=== PATIENT | female | born 2000 | race African-American/Black ===

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

== ENCOUNTER 2021-01-10 18:26 | Emergency (ER) | payer BC ==
[2021-01-10 18:35] VITALS: TEMP 98.4
[2021-01-10] MEDS ORDERED: SODIUM CHLORIDE 0.9% 1,000 ML IV STA (18:45)
--- NOTE | 2021-01-10 18:49 | ED ---
General Adult HPI - General Chief complaint: Syncope Stated complaint: Passout Time Seen by Provider: 01/10/21 18:29 Source: patient, EMS, RN notes reviewed Mode of arrival: EMS Limitations: no limitations - History of Present Illness Initial comments: Patient is a pleasant 20-year-old female presenting to the emergency department following syncopal episode. Patient does have history of similar symptoms previously. Patient believes she is around 13 weeks . No vaginal pain or pelvic pain. No vaginal discharge or bleeding. Patient has had some dyspnea persistent since beginning of , no recent change. Patient felt lightheaded and fell down today. Patient believes she passed out prior to striking the ground. Patient does have headache that is improving. No laceration. No visual change. No chest pain. - Related Data Home Medications Medication Instructions Recorded Confirmed Multivitamins, Thera [Multivitamin 1 tab PO DAILY 10/18/17 10/18/17 (formulary)] Previous Rx's Medication Instructions Recorded Cefixime [Suprax] 400 mg PO DAILY #7 cap 10/18/17 Allergies Allergy/AdvReac Type Severity Reaction Status Date / Time No Known Allergies Allergy Verified 01/10/21 18:29 Review of Systems ROS Statement: Those systems with pertinent positive or pertinent negative responses have been documented in the HPI. ROS Other: All systems not noted in ROS Statement are negative. Constitutional: Denies: fever Eyes: Denies: eye pain ENT: Denies: ear pain Respiratory: Denies: cough Cardiovascular: Denies: chest pain Endocrine: Denies: fatigue Gastrointestinal: Denies: abdominal pain Genitourinary: Reports: as per HPI. Denies: dysuria Musculoskeletal: Denies: back pain Skin: Denies: rash Neurological: Reports: as per HPI, headache. Denies: weakness, confusion Past Medical History Past Medical History: No Reported History History of Any Multi-Drug Resistant Organisms: None Reported Past Surgical History: Tonsillectomy Past Psychological History: Anxiety, Depression Past Alcohol Use History: None Reported Past Drug Use History: None Reported General Exam Limitations: no limitations General appearance: alert, in no apparent distress Head exam: Present: atraumatic, normocephalic, other (Mild tenderness posterior scalp) Eye exam: Present: normal appearance, PERRL, EOMI. Absent: nystagmus ENT exam: Present: normal oropharynx Neck exam: Present: normal inspection. Absent: tenderness Respiratory exam: Present: normal lung sounds bilaterally Cardiovascular Exam: Present: regular rate, normal rhythm, normal heart sounds Expanded Peripheral pulses: 2+: Radial (R), Radial (L), Posterior Tibialis (R), Posterior Tibialis (L) GI/Abdominal exam: Present: soft. Absent: distended, tenderness, guarding Extremities exam: Present: normal inspection. Absent: pedal edema, calf tenderness Neurological exam: Present: alert, oriented X3, CN II-XII intact. Absent: motor sensory deficit Expanded Motor strength exam: RUE: 5, LUE: 5, RLE: 5, LLE: 5 Eye Response: (4) open spontaneously Motor Response: (6) obeys commands Verbal Response: (5) oriented Psychiatric exam: Present: normal affect, normal mood Skin exam: Present: normal color Course Vital Signs 01/10/21 01/10/21 18:29 19:44 Temperature 98.4 F Pulse Rate 104 H 95 Respiratory 16 16 Rate Blood Pressure 110/70 104/70 O2 Sat by Pulse 99 98 Oximetry EKG Findings - EKG Comments: EKG Findings:: Normal sinus rhythm with a rate of 100. CA 150. QRS 84. QT 338. QTC 436. Right axis. Normal QRS. No acute ST change. Medical Decision Making - Medical Decision Making Patient reevaluated and resting sitting upright in bed, symptom-free. Patient updated on results. Patient states she feels better and is comfortable going home. Patient advised close follow-up with primary care physician and MANAGEMENT ASSOCIATE. - Lab Data Result diagrams: 01/10/21 19:04 01/10/21 19:04 Lab Results 01/10/21 01/10/21 01/10/21 Range/Units 18:36 19:01 19:04 WBC 5.8 (4.0-11.0) k/uL RBC 4.16 (3.80-5.40) m/uL Hgb 10.7 L (11.4-16.0) gm/dL Hct 32.6 L (34.0-46.0) % MCV 78.3 L (80.0-100.0) fL MCH 25.7 (25.0-35.0) pg MCHC 32.9 (31.0-37.0) g/dL RDW 16.0 H (11.5-15.5) % Plt Count 288 (150-450) k/uL MPV 7.6 Neutrophils % 76 % Lymphocytes % 16 % Monocytes % 5 % Eosinophils % 2 % Basophils % 0 % Neutrophils # 4.4 (1.3-7.7) k/uL Lymphocytes # 1.0 (1.0-4.8) k/uL Monocytes # 0.3 (0-1.0) k/uL Eosinophils # 0.1 (0-0.7) k/uL Basophils # 0.0 (0-0.2) k/uL Hypochromasia Slight Microcytosis Slight PT (9.0-12.0) sec INR (<1.2) APTT (22.0-30.0) sec Sodium (137-145) mmol/L Potassium (3.5-5.1) mmol/L Chloride (98-107) mmol/L Carbon Dioxide (22-30) mmol/L Anion Gap mmol/L BUN (7-17) mg/dL Creatinine (0.52-1.04) mg/dL Est GFR (CKD-EPI)AfAm (>60 ml/min/1.73 sqM) Est GFR (CKD-EPI)NonAf (>60 ml/min/1.73 sqM) Glucose (74-99) mg/dL POC Glucose (mg/dL) 122 H (75-99) mg/dL POC Glu Director Of Archives Carl Brooke Calcium (8.4-10.2) mg/dL Magnesium (1.6-2.3) mg/dL Total Bilirubin (0.2-1.3) mg/dL AST (14-36) U/L ALT (4-34) U/L Alkaline Phosphatase (38-126) U/L Troponin I (0.000-0.034) ng/mL Total Protein (6.3-8.2) g/dL Albumin (3.5-5.0) g/dL HCG, Quant mIU/mL Urine Color Yellow Urine Appearance Cloudy H (Clear) Urine pH 6.0 (5.0-8.0) Ur Specific [place] 1.031 (1.001-1.035) Urine Protein 1+ H (Negative) Urine Glucose (UA) Negative (Negative) Urine Ketones 3+ H (Negative) Urine Blood Negative (Negative) Urine Nitrite Positive H (Negative) Urine Bilirubin Negative (Negative) Urine Urobilinogen 2.0 (<2.0) mg/dL Ur Leukocyte Esterase Trace H (Negative) Urine RBC <1 (0-5) /hpf Urine WBC 4 (0-5) /hpf Ur Squamous Epith Cells 9 H (0-4) /hpf Urine Bacteria Occasional H (None) /hpf Urine Mucus Moderate H (None) /hpf 01/10/21 01/10/21 01/10/21 Range/Units 19:04 19:04 19:04 WBC (4.0-11.0) k/uL RBC (3.80-5.40) m/uL Hgb (11.4-16.0) gm/dL Hct (34.0-46.0) % MCV (80.0-100.0) fL MCH (25.0-35.0) pg MCHC (31.0-37.0) g/dL RDW (11.5-15.5) % Plt Count (150-450) k/uL MPV Neutrophils % % Lymphocytes % % Monocytes % % Eosinophils % % Basophils % % Neutrophils # (1.3-7.7) k/uL Lymphocytes # (1.0-4.8) k/uL Monocytes # (0-1.0) k/uL Eosinophils # (0-0.7) k/uL Basophils # (0-0.2) k/uL Hypochromasia Microcytosis PT 9.5 (9.0-12.0) sec INR 0.9 (<1.2) APTT 21.9 L (22.0-30.0) sec Sodium 136 L (137-145) mmol/L Potassium 3.9 (3.5-5.1) mmol/L Chloride 107 (98-107) mmol/L Carbon Dioxide 20 L (22-30) mmol/L Anion Gap 9 mmol/L BUN 8 (7-17) mg/dL Creatinine 0.59 (0.52-1.04) mg/dL Est GFR (CKD-EPI)AfAm >90 (>60 ml/min/1.73 sqM) Est GFR (CKD-EPI)NonAf >90 (>60 ml/min/1.73 sqM) Glucose 104 H (74-99) mg/dL POC Glucose (mg/dL) (75-99) mg/dL POC Glu Director Of Archives ID Calcium 9.4 (8.4-10.2) mg/dL Magnesium 1.7 (1.6-2.3) mg/dL Total Bilirubin <0.1 L (0.2-1.3) mg/dL AST 28 (14-36) U/L ALT 22 (4-34) U/L Alkaline Phosphatase 66 (38-126) U/L Troponin I <0.012 (0.000-0.034) ng/mL Total Protein 6.5 (6.3-8.2) g/dL Albumin 3.7 (3.5-5.0) g/dL HCG, Quant 15293.1 mIU/mL Urine Color Urine Appearance (Clear) Urine pH (5.0-8.0) Ur Specific [place] (1.001-1.035) Urine Protein (Negative) Urine Glucose (UA) (Negative) Urine Ketones (Negative) Urine Blood (Negative) Urine Nitrite (Negative) Urine Bilirubin (Negative) Urine Urobilinogen (<2.0) mg/dL Ur Leukocyte Esterase (Negative) Urine RBC (0-5) /hpf Urine WBC (0-5) /hpf Ur Squamous Epith Cells (0-4) /hpf Urine Bacteria (None) /hpf Urine Mucus (None) /hpf - Radiology Data Radiology results: report reviewed (Negative computed tomography scan of the brain. Ultrasound shows 14 week 2 day IUP), image reviewed (Two-view chest x- ray shows no acute process.) Disposition Clinical Impression: Syncope, , Dehydration Disposition: HOME SELF-CARE Condition: Stable Instructions (If sedation given, give patient instructions): (ED), Syncope (ED) Additional Instructions: Please do follow-up with primary care physician and MANAGEMENT ASSOCIATE in the next couple days for recheck. Return for passing out, chest pain or shortness of breath, pelvic pain or bleeding, worsening symptoms or other concerns. Is patient prescribed a controlled substance at d/c from ED?: No Referrals: Lizbeth Prescott MD [Primary Care Provider] - 1-2 days Royer Neal MD [STAFF PHYSICIAN] - 1-2 days Time of Disposition: 20:46
[2021-01-10 18:55] LABS: Appearance,Urine Cloudy (Clear); Bacteria,Urine Occasional /hpf; Bilirubin,Urine Negative (Negative); Blood,Urine Negative (Negative); Color,Urine Yellow; Glucose,Urine (UA) Negative (Negative); Ketones,Urine 3+ (Negative); Leukocyte Esterase,Urine Trace (Negative); Mucus,Urine Moderate /hpf; Nitrite,Urine Positive (Negative); Protein,Urine 1+ (Negative); RBC,Urine <1 /hpf (0-5); Specific Gravity,Urine 1.031 (1.001-1.035); Squamous Epithelial Cell,Urine 9 /hpf (0-4); WBC,Urine 4 /hpf (0-5)
[2021-01-10 19:03] LABS: Glucose,Whole Blood 122 mg/dL (75-99)
[2021-01-10 19:26] LABS: Basophils % (A) 0 %; Eosinophils # (A) 0.1 k/uL (0-0.7); Eosinophils % (A) 2 %; HCT 32.6 % (34.0-46.0); HGB 10.7 gm/dL (11.4-16.0); Hypochromasia Slight; Lymphocytes % (A) 16 %; MCH 25.7 pg (25.0-35.0); MCHC 32.9 g/dL (31.0-37.0); MCV 78.3 fL (80.0-100.0); Mean Platelet Volume 7.6; Microcytosis Slight; Monocytes # (A) 0.3 k/uL (0-1.0); Monocytes % (A) 5 %; Neutrophils # (A) 4.4 k/uL (1.3-7.7); Neutrophils % (A) 76 %; Platelet Count 288 k/uL (150-450); RBC 4.16 m/uL (3.80-5.40); WBC 5.8 k/uL (4.0-11.0)
[2021-01-10 19:40] LABS: INR 0.9 (<1.2); Partial Thromboplastin Time 21.9 sec (22.0-30.0); Prothrombin Time 9.5 sec (9.0-12.0)
[2021-01-10 19:42] LABS: ALT 22 U/L (4-34); AST 28 U/L (14-36); African American GFR (CKD) >90 (>60 ml/min/1.73 sqM); Albumin 3.7 g/dL (3.5-5.0); Alkaline Phosphatase 66 U/L (38-126); Anion Gap 9 mmol/L; Blood Urea Nitrogen 8 mg/dL (7-17); Calcium 9.4 mg/dL (8.4-10.2); Carbon Dioxide 20 mmol/L (22-30); Chloride 107 mmol/L (98-107); Glucose 104 mg/dL (74-99); Magnesium 1.7 mg/dL (1.6-2.3); Non-African American GFR(CKD) >90 (>60 ml/min/1.73 sqM); Potassium 3.9 mmol/L (3.5-5.1); Sodium 136 mmol/L (137-145); Total Bilirubin <0.1 mg/dL (0.2-1.3); Total Protein 6.5 g/dL (6.3-8.2)
[2021-01-10] MEDS ORDERED: SODIUM CHLORIDE 0.9% 500 ML 500 ML IV STA ×2 (19:46→20:07)
--- NOTE | 2021-01-10 19:49 | CT ---
EXAMINATION TYPE: CT brain wo con DATE OF EXAM: 01/10/2021 COMPARISON: 09/07/2010 HISTORY: Synocpe, pt LOC, hit back of head. PT 13 weeks , made aware of the radiation risk an d patient agreed to test. CT DLP: 1044.4 mGycm Automated exposure control for dose reduction was used. Ventricles and sulci appear normal. There is no mass effect nor midline shift. There is no sign of in tracranial hemorrhage. The calvarium is intact. There is normal aeration of the mastoid sinuses. IMPRESSION: Negative CT scan of the brain. No change.
--- NOTE | 2021-01-10 19:50 | XR ---
EXAMINATION TYPE: XR chest 2V DATE OF EXAM: 01/10/2021 COMPARISON: NONE HISTORY: 11/14/2004 TECHNIQUE: 2 views FINDINGS: Heart and mediastinum are normal. Lungs are clear. Diaphragm is normal. Bony thorax appears normal. IMPRESSION: Normal chest.
--- NOTE | 2021-01-10 20:38 | US ---
EXAMINATION TYPE: US OB >= 14 wk fetus DATE OF EXAM: 01/10/2021 COMPARISON: None CLINICAL HISTORY: , syncope TECHNIQUE: Transabdominal (TA) GESTATIONAL AGE / DATING Dates by LMP: (13 weeks/1 days) EDC: 07/17/2021 Dates by Current Scan: (14 weeks/2 days) EDC: 07/09/2021 SURVEY IUP: Single PLACENTA: Anterior PREVIA: Low Lying ALVAREZ: Too early to measure CERVICAL LENGTH (transabdominal: norm > 3.0cm): 3.1 cm BIOMETRY PRESENTATION: Breech LIE: Transverse with head maternal right BPD: 2.5 cm 14 weeks / 3 days HC: 9.7 cm 14 weeks / 4 days AC: 7.8 cm 14 weeks / 2 days FL: 1.2 cm 13 weeks / 5 days ESTIMATED WEIGHT IN GRAMS: 88 grams ESTIMATED WEIGHT IN LBS/OZ: 0 lbs. 3 oz. WEIGHT PERCENTAGE BASED ON ESTABLISHED DATES: 89% HC/AC: 1.24 Normal FL/AC: 16% Normal HEART RATE: 152 bpm RHYTHM: Normal Viable IUP with an MARITZA of 07/09/2021 by this exam. Low lying placenta IMPRESSION: The ultrasound gestational age is 14 weeks and 2 days.
[2021-01-10 20:39] LABS: HCG,Quantitative Serum 45250.1 mIU/mL
[2021-01-10 20:56] VITALS: BP 104/54; PULSE 93; RESP 18
== END 2021-01-10 20:56 | disposition home or self-care (01) ==
LOC: EC 18:26
DX: O26.891 Other specified pregnancy related conditions, first trimester (principal); R55 Syncope and collapse; O99.281 Endocrine, nutritional and metabolic diseases complicating pregnancy, first trimester; E86.0 Dehydration; Z3A.13 13 weeks gestation of pregnancy
CPT/HCPCS: 36415; 70450; 71046; 76805; 80053; 81001; 83735; 84484; 84702; 85025; 85610; 85730; 93005; 96360; 96361; 99285

== ENCOUNTER 2021-06-24 03:13 | Observation (INO) | payer BC, MEDICARE, OTHER ==
[2021-06-24 05:00] LABS: Appearance,Urine Turbid (Clear); Bacteria,Urine Occasional /hpf; Bilirubin,Urine Negative (Negative); Blood,Urine Large (Negative); Color,Urine Light Red; Glucose,Urine (UA) Negative (Negative); Ketones,Urine 2+ (Negative); Leukocyte Esterase,Urine Large (Negative); Mucus,Urine Moderate /hpf; Nitrite,Urine Positive (Negative); PH, Urine 6.5 (5.0-8.0); Protein,Urine 2+ (Negative); RBC,Urine >182 /hpf (0-5); Specific Gravity,Urine 1.019 (1.001-1.035); Squamous Epithelial Cell,Urine 10 /hpf (0-4); Urobilinogen,Urine <2.0 mg/dL (<2.0); WBC,Urine >182 /hpf (0-5)
[2021-06-24] MEDS ORDERED: LACTATED RINGERS 1,000 ML IV SCH (05:15)
--- NOTE | 2021-06-24 05:24 | P.PN ---
Progress Note - Text Progress Note Date: 06/24/21 Abdominal pain history of stones. Patient is a 21-year-old 1 para 0 at 36 weeks 4 days gestation who arrives complaining of abdominal/flank pain that began earlier the day. A urinalysis was done showing nitrites as well as protein and greater than 180 red blood cells and white blood cells. She does have a history of kidney stones and this may certainly reflect that but she also has a bladder infection. There is only occasional bacteria and there are no white blood cells and clumps decreasing the likelihood of pyelonephritis symptoms don't really appear pyelonephritis like at this time either. Her vital signs are stable and she is afebrile. She has no other issues with the p regnancy and is otherwise feeling well. On physical exam heart regular lungs are clear, abdomen is soft and there is no costovertebral angle tenderness. I suspect this is just a urinary tract infection may be compounded by kidney stones. We did discuss the option of obtaining an ultrasound to have them assess her kidney stones but since it will not really dramatically effect treatment she is declined the ultrasound. We will start IV hydration and IV antibiotics with expectation that we may be able to discharge her later today on oral antibiotics with continued improvement.
[2021-06-24 05:40] VITALS: BP 149/75; PULSE 102; RESP 16; TEMP 97.2
[2021-06-24 06:00] LABS: Anisocytosis Moderate; Basophils % (A) 0 %; Eosinophils # (A) 0.1 k/uL (0-0.7); Eosinophils % (A) 1 %; HCT 32.1 % (34.0-46.0); HGB 9.9 gm/dL (11.4-16.0); Hypochromasia Marked; Lymphocytes # (A) 1.4 k/uL (1.0-4.8); Lymphocytes % (A) 18 %; MCH 25.3 pg (25.0-35.0); MCHC 30.9 g/dL (31.0-37.0); MCV 82.1 fL (80.0-100.0); Mean Platelet Volume 8.3; Microcytosis Slight; Monocytes # (A) 0.5 k/uL (0-1.0); Monocytes % (A) 6 %; Neutrophils # (A) 5.7 k/uL (1.3-7.7); Neutrophils % (A) 74 %; Platelet Count 275 k/uL (150-450); Poikilocytosis Slight; RBC 3.91 m/uL (3.80-5.40); RDW 23.3 % (11.5-15.5); WBC 7.7 k/uL (4.0-11.0)
--- NOTE | 2021-06-24 08:40 | P.HPOB ---
History of Present Illness H&P Date: 06/24/21 Chief Complaint: right flank pain This is a 21-year-old female 1 para 0 with an estimated date of confinement of 07/17/2021, estimated gestational age of 36-5/7 weeks who presents with complaints of right flank pain which began all of a sudden a few hours prior to arrival to the hospital. She denies any nausea or vomiting. Pain is better at this time. She has not noticed any blood when she is urinating. She did pass a mucous plug a couple days ago. course has been otherwise uncomplicated. She does have a history of urinary tract infections during this . Review of Systems Constitutional: Denies chills, Denies fever Eyes: denies blurred vision, denies pain Ears, nose, mouth and throat: Denies headache, Denies sore throat Cardiovascular: Denies chest pain, Denies shortness of breath Respiratory: Denies cough Gastrointestinal: Reports abdominal pain (irregular contractions), Denies nausea, Denies vomiting Genitourinary: Reports flank pain (right), Reports pelvic pain, Reports , Denies abnormal vaginal bleeding Musculoskeletal: Reports low back pain Past Medical History Past Medical History: No Reported History Additional Past Medical History / Comment(s): low iron during this - history of iron infusions History of Any Multi-Drug Resistant Organisms: None Reported Past Surgical History: No Surgical Hx Reported, Tonsillectomy Past Anesthesia/Blood Transfusion Reactions: No Reported Reaction Past Psychological History: Anxiety, Depression Smoking Status: Never smoker Past Alcohol Use History: None Reported Past Drug Use History: None Reported Medications and Allergies Home Medications Medication Instructions Recorded Confirmed Type Multivitamins, Thera [Multivitamin 1 tab PO DAILY 10/18/17 06/24/21 History (formulary)] Allergies Allergy/AdvReac Type Severity Reaction Status Date / Time No Known Allergies Allergy Verified 01/10/21 18:29 Exam Osteopathic Statement: *. No significant issues noted on an osteopathic structural exam other than those noted in the History and Physical/Consult. Vital Signs Temp Pulse Resp BP Pulse Ox 06/24/21 05:30 97.2 F L 102 H 16 149/75 06/24/21 03:19 97.5 F L 107 H 16 136/72 97 Intake and Output 06/23/21 06/24/21 06/24/21 22:59 06:59 14:59 Other: # Voids 1 Weight 102.058 kg Gen.: Well-developed nourished female in no acute distress Heart: Regular rate and rhythm Lungs: Clear to auscultation bilaterally Abdomen: Soft, , nontender Back: No CVA tenderness on the right. Minimal tenderness to touch. extremities: Negative Homans heart tones: Reactive, category 1 Contractions: Irregular Results Result Diagrams: 06/24/21 05:36 Abnormal Lab Results - Last 24 Hours (Table) 06/24/21 06/24/21 Range/Units 03:22 05:36 Hgb 9.9 L (11.4-16.0) gm/dL Hct 32.1 L (34.0-46.0) % MCHC 30.9 L (31.0-37.0) g/dL RDW 23.3 H (11.5-15.5) % Urine Appearance Turbid H (Clear) Urine Protein 2+ H (Negative) Urine Ketones 2+ H (Negative) Urine Blood Large H (Negative) Urine Nitrite Positive H (Negative) Ur Leukocyte Esterase Large H (Negative) Urine RBC >182 H (0-5) /hpf Urine WBC >182 H (0-5) /hpf Urine WBC Clumps Few H (None) /hpf Ur Squamous Epith Cells 10 H (0-4) /hpf Urine Bacteria Occasional H (None) /hpf Urine Mucus Moderate H (None) /hpf Assessment and Plan (1) Urinary tract infection affecting , antepartum Current Visit: Yes Status: Acute Code(s): O23.40 - UNSP INFECTION OF URINARY TRACT IN , UNSP TRIMESTER SNOMED Code(s): 032536997 Plan: Since the patient is doing well this morning after receiving one dose of IV antibiotic and IV hydration, will discharge home on oral antibiotics with Keflex. She is advised to follow-up in the office in approximately 1 week for visit. She is advised to return to the hospital she has any high fevers, severe flank pain, nausea and vomiting, or labor signs or symptoms.
--- NOTE | 2021-06-24 08:43 | P.DS ---
Providers Date of admission: 06/24/21 05:23 Expected date of discharge: 06/24/21 Attending physician: Brea Cali Primary care physician: Stated None - Discharge Diagnosis(es) (1) Urinary tract infection affecting , antepartum Current Visit: Yes Status: Acute Hospital Course: this is a 21-year-old female 1 para 0 at 36-5/7 weeks who presented with right flank pain of sudden onset. Urinalysis is consistent with urinary tract infection. Her white count is normal and she is afebrile. She is feeling better after 1 dose of IV antibiotics and IV hydration. Will discharge home today on oral Keflex 500 mg 4 times a day for 7 days. She is encouraged to continue oral hydration and ambulation. She is advised to return to the hospital if she has any further severe flank pain, nausea and vomiting, high fevers, or any worsening symptoms. Patient Condition at Discharge: Stable Plan - Discharge Summary New Discharge Prescriptions: New Cephalexin [Keflex] 500 mg PO Q6HR 7 Days #28 cap No Action Multivitamins, Thera [Multivitamin (formulary)] 1 tab PO DAILY Discharge Medication List Multivitamins, Thera [Multivitamin (formulary)] 1 tab PO DAILY 10/18/17 [History] Cephalexin [Keflex] 500 mg PO Q6HR 7 Days #28 cap 06/24/21 [Rx] Follow up Appointment(s)/Referral(s): Brea Cali DO [Doctor of Osteopathic Medicine] - 1 Week Discharge Disposition: HOME SELF-CARE
== END 2021-06-24 10:01 | disposition home or self-care (01) ==
LOC: FBPOP 03:13 → INTOOBSV 05:23 → 4FBP 05:23 → UNDODISIN 10:01
PROVIDERS: ADMIT Obstetrics & Gynecology; ATTEND Obstetrics & Gynecology
DX: O23.43 Unspecified infection of urinary tract in pregnancy, third trimester (principal); O99.013 Anemia complicating pregnancy, third trimester; O99.343 Other mental disorders complicating pregnancy, third trimester; F41.9 Anxiety disorder, unspecified; F32.A Depression, unspecified; Z3A.36 36 weeks gestation of pregnancy; Z98.890 Other specified postprocedural states; Z87.442 Personal history of urinary calculi; Z87.440 Personal history of urinary (tract) infections
CPT/HCPCS: 59025; 85025; 81001; 87086; G0463; G0378; J0690; 99213

== ENCOUNTER 2021-07-16 06:00 | Inpatient (IN) | payer OTHER ==
--- NOTE | 2021-07-15 19:56 | P.HPOB ---
History of Present Illness H&P Date: 07/15/21 Chief Complaint: Induction of labor This is a 21 y.o. female, 1, para 0, with an estimated date of confinement of 07/17/2021, estimated gestational age of 39-6/7 weeks, who presents for induction of labor. She complains of irregular contractions and pressure. Her has been complicated by anemia and she did receive [address] Obrien's office. Her 35 week ultrasound showed an estimated weight of 6#7oz (75-90%), with abdominal circumference at 91%. labs: Hepatitis B surface antigen-neg RPR-NR Rubella-immune Blood type-O+ Antibody screen-neg HIV-NR Hemoglobin-9.3 Quad screen-neg GC/Chlamyida/Trich-neg 1 hr. GTT-116/Hgb-8.3 GBS-neg OB Hx: Director Index Hx: No hx STDs Social Hx: Single, unemployed. Review of Systems Constitutional: Denies chills, Denies fever Eyes: denies blurred vision, denies pain Ears, nose, mouth and throat: Denies headache, Denies sore throat Cardiovascular: Denies chest pain, Denies shortness of breath Respiratory: Denies cough Gastrointestinal: Reports abdominal pain (Irregular contractions) Genitourinary: Reports pelvic pain, Reports Musculoskeletal: Reports low back pain Integumentary: Denies pruritus, Denies rash Neurological: Denies numbness, Denies weakness Psychiatric: Reports anxiety, Reports depression Past Medical History Past Medical History: No Reported History Additional Past Medical History / Comment(s): low iron during this - history of iron infusions History of Any Multi-Drug Resistant Organisms: None Reported Past Surgical History: No Surgical Hx Reported, Tonsillectomy Past Anesthesia/Blood Transfusion Reactions: No Reported Reaction Past Psychological History: Anxiety, Depression Smoking Status: Never smoker Past Alcohol Use History: None Reported Past Drug Use History: None Reported Medications and Allergies Home Medications Medication Instructions Recorded Confirmed Type Multivitamins, Thera [Multivitamin 1 tab PO DAILY 10/18/17 06/24/21 History (formulary)] Allergies Allergy/AdvReac Type Severity Reaction Status Date / Time No Known Allergies Allergy Verified 01/10/21 18:29 Exam Osteopathic Statement: *. No significant issues noted on an osteopathic structural exam other than those noted in the History and Physical/Consult. HEENT: within normal limits Heart: regular rate and rhythm Lungs: clear to auscultation bilaterally Abdomen: , fundal height 41 cm Cervix: 1.5 cm/70%/-2 heart tones: 120's by doppler's Extremities: neg. Angelica's Assessment and Plan (1) 39 weeks gestation of Status: Acute Code(s): Z3A.39 - 39 WEEKS GESTATION OF SNOMED Code(s): 71693818 (2) Anemia Status: Acute Code(s): D64.9 - ANEMIA, UNSPECIFIED SNOMED Code(s): 989638637 Plan: Proceed with oxytocin induction of labor. Expectant management. Epidural anesthesia if desired.
[2021-07-16] MEDS: LACTATED RINGERS 1,000 ML IV SCH ×2 (07:00→18:14)
[2021-07-16] MEDS ORDERED: CARBOPROST TROMETHAMINE 250 MCG/ML 1 ML AMP IM PRN (07:01)
[2021-07-16] MEDS ORDERED: OXYTOCIN 10 UNIT/ML 1 ML VIAL IM PRN (07:01)
[2021-07-16] MEDS ORDERED: TERBUTALINE 1 MG/ML VIAL SQ PRN (07:01)
[2021-07-16] MEDS ORDERED: METHYLERGONOVINE 0.2 MG/ML 1 ML AMP IM PRN (07:01)
[2021-07-16] MEDS ORDERED: OXYTOCIN 30 UNITS/500 ML NS 30 UNIT in SALINE 1 500ML.BAG IV SCH (07:01)
[2021-07-16] MEDS ORDERED: LIDOCAINE 1% (10MG/ML) FOR IV START INTRADERMA PRN (07:01)
[2021-07-16] MEDS ORDERED: LIDOCAINE 0.5% (PF) 5 MG/ML (50 ML SDV) SQ PRN (07:01)
[2021-07-16 08:26] LABS: Anisocytosis Moderate; Basophils % (A) 0 %; Eosinophils # (A) 0.1 k/uL (0-0.7); Eosinophils % (A) 1 %; HCT 37.2 % (34.0-46.0); HGB 11.4 gm/dL (11.4-16.0); Hypochromasia Moderate; Lymphocytes # (A) 1.7 k/uL (1.0-4.8); Lymphocytes % (A) 30 %; MCH 27.2 pg (25.0-35.0); MCHC 30.5 g/dL (31.0-37.0); Mean Platelet Volume 9.3; Monocytes # (A) 0.4 k/uL (0-1.0); Monocytes % (A) 7 %; Neutrophils # (A) 3.3 k/uL (1.3-7.7); Neutrophils % (A) 59 %; Platelet Count 251 k/uL (150-450); RBC 4.18 m/uL (3.80-5.40); RDW 20.9 % (11.5-15.5); WBC 5.5 k/uL (4.0-11.0)
[2021-07-16] MEDS ORDERED: BUTORPHANOL 1 MG/ML 1 ML VIAL IV PRN (10:31)
[2021-07-16] MEDS ORDERED: BUPIVACAINE (PF) 0.25% 30 ML VIAL ONE (13:12)
[2021-07-16] MEDS ORDERED: fentaNYL (PF) 50 MCG/ML 5 ML AMP ONE (13:12)
[2021-07-16] MEDS ORDERED: SODIUM CHLORIDE 0.9% 100 ML BAG ONE (13:12)
[2021-07-16] MEDS ORDERED: ROPIVACAINE 100 MG, fentaNYL (PF). 200 MCG in SODIUM CHLORIDE 0.9% 76 ML EPIDURAL ONE (13:26)
[2021-07-17] MEDS ORDERED: CITRIC ACID-SODIUM CITRATE 15 ML CUP PO ONE (00:46)
[2021-07-17] MEDS ORDERED: ZOLPIDEM 5 MG TAB PO PRN (00:55)
[2021-07-17] MEDS ORDERED: NALOXONE 0.4 MG/ML 1 ML VIAL IV PRN ×2 (00:55→02:14)
[2021-07-17] MEDS ORDERED: HYDROmorphone 1 MG/ML 1 ML SYRINGE IVP PRN (00:55)
[2021-07-17] MEDS ORDERED: diphenhydrAMINE 50 MG/ML 1 ML VIAL IVP PRN ×2 (00:55)
[2021-07-17] MEDS ORDERED: diphenhydrAMINE 50 MG CAP PO PRN (00:55)
[2021-07-17] MEDS ORDERED: HYDROmorphone 0.2 MG/1 ML SYRINGE IVP PRN (00:55)
[2021-07-17] MEDS ORDERED: ONDANSETRON 4 MG/2 ML VIAL IVP PRN (00:55)
[2021-07-17] MEDS ORDERED: diphenhydrAMINE 25 MG CAP PO PRN (00:55)
[2021-07-17] MEDS ORDERED: LANOLIN CREAM 5 GM TUBE TOPICAL PRN (00:55)
[2021-07-17] MEDS ORDERED: METOCLOPRAMIDE 5 MG/ML 2 ML VIAL IVP PRN (00:55)
[2021-07-17] MEDS ORDERED: OXYTOCIN 30 UNITS/500 ML NS 30 UNIT in SALINE 1 500ML.BAG IV SCH (01:00)
[2021-07-17] MEDS ORDERED: MORPHINE SULFATE (PF) 0.3 MG/0.3 ML SYR ONE (01:41)
[2021-07-17] MEDS ORDERED: ONDANSETRON 4 MG/2 ML VIAL ONE (01:41)
[2021-07-17] MEDS ORDERED: NALBUPHINE 10 MG/ML (1 ML AMP) ONE (01:41)
[2021-07-17] MEDS ORDERED: OXYTOCIN 30 UNITS/500 ML NS BAG IV ONE (01:41)
[2021-07-17] MEDS ORDERED: KETOROLAC 15 MG/ML 1 ML VIAL ONE (01:41)
[2021-07-17] MEDS ORDERED: OXYTOCIN 10 UNIT/ML 1 ML VIAL ONE (01:41)
[2021-07-17] MEDS ORDERED: MORPHINE SULFATE 2 MG/ML SYRINGE IVP PRN (02:14)
[2021-07-17] MEDS ORDERED: HYDROmorphone PCA 10 MG/50 ML BAG IV PRN (02:30)
--- NOTE | 2021-07-17 02:39 | P.OP ---
Date of Procedure: 07/17/21 Preoperative Diagnosis: 1. Intrauterine at 40-0/7 weeks. 2. Failure to progress. 3. Maternal exhaustion. Postoperative Diagnosis: Same Procedure(s) Performed: Primary low transverse section Anesthesia: epidural (Plus Duramorph) Surgeon: Brea Cali Airplane Patrol Pilot #1: Rose Zavala Estimated Blood Loss (ml): 520 Pathology: none sent Condition: stable Disposition: floor Indications for Procedure: This is a 21-year-old female 1 para 0 at 40-0/7 weeks who underwent oxytocin induction of labor early yesterday morning and progressed to a maximum of 7 cm and made no further change in at least 2 hours despite adequate contractions. Her cervix became slightly swollen and It was noted. She also was uncomfortable and was exhausted and was requesting delivery. Operative Findings: A viable female infant is noted in the vertex presentation with scores of 8 at 1 minute and 9 at 5 minutes and infant weight of 7 lbs. 4 oz. At was noted on the . Normal uterus tubes and ovaries are noted. Description of Procedure: The patient is taken to the operating room where she is placed in the dorsal supine position with leftward tilt after epidural anesthesia is bolused. She is prepped and draped in the normal sterile fashion. Skin was tested and found to be adequately anesthetized. A Pfannenstiel skin incision was made with a scalpel. A second knife was used to carry the incision down to the underlying layer of fascia. The fascia was nicked in the midline with a scalpel and then extended laterally bilaterally with Reece scissors. The anterior lip of the fascia was grasped with 2 Crow clamps and then dissected off the underlying rectus muscle in the midline with Reece scissors. The inferior aspect of the fascial incision was grasped with 2 Crow clamps and dissected off the underlying rectus muscle and the midline with Reece scissors. Next the peritoneum layer was tented up with 2 hemostats and then entered sharply with the scalpel. The incision is extended superiorly and inferiorly with Metzenbaum scissors. Next a DeLee retractor is placed. The vesicouterine peritoneum is entered sharply with Metzenbaum scissors and extended laterally bilaterally with Metzenbaum scissors and then the bladder flap is pushed inferiorly. The lower uterine segment is incised in transverse fashion with the scalpel and then bluntly entered with a hemostat. Clear fluid is noted. The incision was then extended laterally bilaterally with 2 fingers. Next the infant's head is delivered through the incision. Nose and mouth are bulb suctioned. The remainder of the infant is easily delivered and placed on mother's abdomen. Cord is clamped and cut. Infant is taken to warmer by nursing staff. Uterine fundus is gently massaged and placenta is delivered manually. Uterus is exteriorized and cleared of all clots and debris. Uterine incision is closed with 0 Vicryl suture in a running locked fashion. A second layer of 0 Vicryl suture is used in a running fashion for hemostasis. Once adequate hemostasis as assured, the vesicouterine peritoneum is reapproximated with 2-0 Vicryl suture in a running fashion. Posterior cul-de-sac is suctioned of all clots and debris. Uterus is returned to the abdomen. Incision is noted to be hemostatic. Peritoneal layer is closed with 0 Vicryl suture in a running fashion. Muscle layer is reapproximated with 0 Vicryl suture in interrupted fashion. Fascia layer is then closed with 0 PDS suture with 2 sutures meeting in the midline and the knots buried in either side and in the midline. The subcutaneous tissue was then closed with 2-0 Vicryl suture. Skin layer was then closed with norman. All sponge and needle counts are correct. The patient is taken to recovery room in stable condition.
[2021-07-17] MEDS: ACETAMINOPHEN TAB 500 MG TAB PO SCH ×3 (04:31→21:01)
[2021-07-17] MEDS: LACTATED RINGERS 1,000 ML IV SCH (04:38)
[2021-07-17] MEDS: KETOROLAC 30 MG/ML 1 ML VIAL IVP SCH ×2 (11:30→17:55)
[2021-07-17] MEDS: IBUPROFEN 600 MG TAB PO SCH ×3 (18:10→20:11)
[2021-07-17] MEDS: SENNOSIDES-DOCUSATE SODIUM 1 EACH TAB PO SCH ×2 (20:11→21:00)
[2021-07-17] MEDS: MULTIVITAMINS, THERA 1 EACH TAB PO SCH (20:11)
[2021-07-18] MEDS: IBUPROFEN 600 MG TAB PO SCH ×3 (00:04→15:22)
[2021-07-18] MEDS: KETOROLAC 30 MG/ML 1 ML VIAL IVP SCH ×2 (00:04→05:50)
[2021-07-18] MEDS: ACETAMINOPHEN TAB 500 MG TAB PO SCH (02:42)
[2021-07-18 07:25] LABS: Anisocytosis Moderate; Basophils % (A) 0 %; Eosinophils # (A) 0.1 k/uL (0-0.7); Eosinophils % (A) 1 %; HCT 31.3 % (34.0-46.0); Hypochromasia Moderate; Lymphocytes # (A) 1.7 k/uL (1.0-4.8); Lymphocytes % (A) 22 %; MCH 28.2 pg (25.0-35.0); Mean Platelet Volume 8.8; Monocytes # (A) 0.5 k/uL (0-1.0); Monocytes % (A) 7 %; Neutrophils # (A) 5.4 k/uL (1.3-7.7); Neutrophils % (A) 68 %; Platelet Count 207 k/uL (150-450); RBC 3.44 m/uL (3.80-5.40); WBC 7.9 k/uL (4.0-11.0)
[2021-07-18 07:26] LABS: HGB 9.7 gm/dL (11.4-16.0)
[2021-07-18] MEDS: SENNOSIDES-DOCUSATE SODIUM 1 EACH TAB PO SCH ×2 (07:52→19:19)
[2021-07-18] MEDS: MULTIVITAMINS, THERA 1 EACH TAB PO SCH (07:53)
--- NOTE | 2021-07-18 11:37 | P.DS ---
Providers Date of admission: 07/16/21 06:05 Expected date of discharge: 07/19/21 Attending physician: Brea Cali Primary care physician: Stated None - Discharge Diagnosis(es) (1) 39 weeks gestation of Current Visit: No Status: Acute (2) Anemia Current Visit: No Status: Acute Hospital Course: This is a 21-year-old female 1 para 0 at 40 weeks who presented for induction of labor. She underwent oxytocin induction of labor and then required a very low transverse section on 07/17/2021 for delivery of a viable female infant with scores of 8 at 1 minute and 9 at 5 minutes and infant weight of 7 lbs. 4 oz. This was for failure to progress. Her postoperative course has been uncomplicated. She is passing flatus but no bowel movement yet. Her pain is well-controlled with ibuprofen and Tylenol. She was working on breast-feeding but has switched to bottle feeding. Vital signs are stable. Abdomen is soft with positive bowel sounds 4. Incision is clean dry and intact. Vaibhav are in place. Extremities show trace edema. Impression is status post primary low transverse section postoperative day #1. Plan is to continue postoperative and care today and discharge home tomorrow morning. Vaibhav will be removed and Steri-Strips placed prior to discharge. She is given a prescription for a breast pump and ibuprofen. She is advised to continue taking her vitamins and iron at home. She is advised to call the office if she has any further questions or concerns prior to her appointment. Routine and postoperative instructions are given. She is advised to follow up this next week in the office for a postoperative check. Procedures: Primary low transverse section on 07/17/2021 Patient Condition at Discharge: Stable Plan - Discharge Summary Discharge Rx Participant: Yes New Discharge Prescriptions: New Acetaminophen Tab [Tylenol] 1,000 mg PO Q6H tab Ibuprofen [Motrin] 600 mg PO Q6H #60 tab Continue Multivitamins, Thera [Multivitamin (formulary)] 1 tab PO DAILY Discharge Medication List Multivitamins, Thera [Multivitamin (formulary)] 1 tab PO DAILY 10/18/17 [History] Acetaminophen Tab [Tylenol] 1,000 mg PO Q6H tab 07/18/21 [Rx] Ibuprofen [Motrin] 600 mg PO Q6H #60 tab 07/18/21 [Rx] Follow up Appointment(s)/Referral(s): Brea Cali DO [Doctor of Osteopathic Medicine] - 08/27/21 2:00 pm (Post Op 07-28-2021 at 01:30) Activity/Diet/Wound Care/Special Instructions: Instructions 1. Do not begin any exercise program for 3 weeks. 2. Do not resume sexual relations for 3 weeks or longer if uncomfortable. 3. You may take tub baths or showers at any time. 4. You may use tampons if desired after 3 weeks. 5. Keep the area of episiotomy (stitches) clean and dry. 6. If you are not nursing, wear a good fitting, supportive bra during the day and limit fluid intake for at least 1 week to prevent breast engorgement. 7. Call the office, [phone], within the next week to make appointment for your 6 week checkup if it has not already been made. 8. Report any of the following occurrences to the doctor promptly: a. Heavy, excessive bleeding b. Chills, fever c. Burning or frequency of urination d. Pain or redness and breasts if nursing e. Increasing pain or swelling in episiotomy (stitches). In addition to the above instructions, the following additional should be followed: 1. No heavy lifting or straining (exercising) until after 6 week checkup. 2. Keep abdominal incision clean and dry: You may wear a dressing if more comfortable. 3. Make office appointment for 10 days after going home or as instructed by her doctor. Discharge Disposition: HOME SELF-CARE
[2021-07-18] MEDS: SIMETHICONE 80 MG CHEWABLE PO PRN (13:22)
[2021-07-18 15:19] VITALS: RESP 16
[2021-07-19] MEDS: IBUPROFEN 600 MG TAB PO SCH ×3 (00:04→11:54)
[2021-07-19] MEDS: SIMETHICONE 80 MG CHEWABLE PO PRN ×2 (00:04→06:54)
[2021-07-19] MEDS: ACETAMINOPHEN TAB 500 MG TAB PO SCH ×5 (04:06→11:49)
[2021-07-19] MEDS: KETOROLAC 30 MG/ML 1 ML VIAL IVP SCH ×2 (07:31→07:32)
[2021-07-19 07:36] VITALS: BP 105/69; PULSE 73; TEMP 97.9
[2021-07-19] MEDS: MULTIVITAMINS, THERA 1 EACH TAB PO SCH (11:08)
[2021-07-19] MEDS: SENNOSIDES-DOCUSATE SODIUM 1 EACH TAB PO SCH (11:08)
--- NOTE | 2021-07-20 20:07 | P.PN ---
Progress Note - Text 07/18/21 1538 21-year-old female status post with spinal Duramorph. Patient seen and evaluated for postop pain control, patient has a VAS of 3 with no complains of nausea vomiting or pruritus. Doing well
== END 2021-07-19 12:00 | disposition home or self-care (01) | DRG 788 ==
LOC: 4FBP 06:05
PROVIDERS: ADMIT Obstetrics & Gynecology; ATTEND Obstetrics & Gynecology
PROC: 10D00Z1 Extraction of Products of Conception, Low, Open Approach (ICD-10-PCS; principal; 2021-07-17 01:40)
DX: O99.02 Anemia complicating childbirth (principal); O75.81 Maternal exhaustion complicating labor and delivery; O62.2 Other uterine inertia; Z37.0 Single live birth; Z3A.39 39 weeks gestation of pregnancy; D64.9 Anemia, unspecified; F32.A Depression, unspecified; F41.9 Anxiety disorder, unspecified; O99.344 Other mental disorders complicating childbirth
CPT/HCPCS: 85025; 86850; 86900; 86901

== ENCOUNTER → 2021-08-27 | Outpatient (CLI) | payer OTHER | END | disposition home or self-care (01) | LOC: LABWHC1 14:57 | PROVIDERS: ATTEND Obstetrics & Gynecology | DX: N91.2 Amenorrhea, unspecified (principal) | CPT/HCPCS: 36415; 84702 ==